=== PATIENT | female | born 1955 | race Caucasian/White ===

== ENCOUNTER 2025-04-06 14:12 | Emergency (ER) | payer MEDICARE, OTHER ==
[~2025-04-06] VITALS: Ht 172.7 cm; Wt 110.0 kg
--- NOTE | 2025-04-06 16:01 | ED.PDOC ---
Clarisse. trauma (HPI) HPI Comments A 69 YEAR OLD FEMALE PRESENTS TO THE ED WITH COMPLAINT OF NOSE PAIN, LEFT KNEE PAIN, AND LEFT SHOULDER PAIN STATUS POST FALL. PATIENT STATES SHE WAS WALKING AND ACCIDENTALLY TRIPPED OVER OCCURRED AND FELL FORWARD. PATIENT REPORTS SHE HIT HER NOSE ON THE GROUND AND NOW HAS A BRUISE ON HER NOSE. PATIENT STATES SHE IS ALSO EXPERIENCING LEFT SHOULDER PAIN AND LEFT KNEE PAIN DUE TO HITTING THESE AREAS ON THE GROUND WELL. PATIENT DENIES HEAD INJURY, NECK INJURY, LOC, FEVER, CHILLS, SHORTNESS OF BREATH, CHEST PAIN, ABDOMINAL PAIN, NAUSEA, VOMITING, HEADACHE, OR OTHER COMPLAINTS. NO OTHER SYMPTOMS OR MODIFYING FACTORS AT THIS TIME. PATIENT IS ALERT, ORIENTED X 4, AND HAS STEADY GAIT. Chief Complaint: Fall Injury Time Seen by MD: 14:34 Reviewed notes: Nurses Notes, Medications, Allergies Allergies: Coded Allergies: Penicillins (Verified Allergy, Unknown, 04/06/25) Home Meds Active Scripts Tramadol HCl (Tramadol HCl) 50 Mg Tab, 50 MG PO BID, #20 TAB Prov:ADA GUZMÁN 04/06/25 Cephalexin Monohydrate (Cephalexin) 500 Mg Cap, 1 CAP PO QID, #32 CAP Prov:ADA GUZMÁN 04/06/25 Information Source: Patient Mode of Arrival: Ambulatory Severity: Moderate Timing: Hours Duration: Since onset, Hours Prehospital treatment: None Location: (L) Knee, Nose, (L) Shoulder Location of laceration: None Mechanism: Fall Associated signs and symtoms: None Past Medical History PAST MEDICAL HISTORY: Arthritis Surgical History: Denies all surgeries [employer]K [employer]IP[employer] History: No Pertinent [employer]PER History Family History Family History: Reviewed,noncontributory to illness Social History Smoker: Non-Smoker Alcohol: Denies ETOH Use Drugs: Denies Drug Use Lives In: Home Constitutional: denies: chills, diaphoresis, fatigue, fever, malaise, sweats, weakness, others EENTM: reports: nose pain; denies: blurred vision, double vision, ear bleeding, ear discharge, ear drainage, ear pain, ear ringing, eye pain, eye redness, hearing loss, mouth pain, mouth swelling, nasal discharge, nose bleeding, nose congestion, photophobia, tearing, throat pain, throat swelling, voice changes, others Respiratory: denies: cough, hemoptysis, orthopnea, SOB at rest, shortness of breath, SOB with excertion, stridor, wheezing, others Cardiovascular: denies: chest pain, dizzy spells, diaphoresis, Dyspnea on exertion, edema, irregular heart beat, left arm pain, lightheadedness, palpitations, PND, syncope, others Gastrointestinal: denies: abdomen distended, abdominal pain, blood streaked bowels, constipated, diarrhea, dysphagia, difficulty swallowing, hematemesis, melena, nausea, poor appetite, poor fluid intake, rectal bleeding, rectal pain, vomiting, others Genitourinary: denies: abnormal vagina bleeding, burning, dyspareunia, dysuria, flank pain, frequency, hematuria, incontinence, pain, , vagina discharge, urgency, others Neurological: denies: dizziness, fainting, headache, left sided numbness, left sided weakness, numbness, paresthesia, pre-existing deficit, right sided numbness, right sided weakness, seizure, speech problems, tingling, tremors, weakness, others Musculoskeletal: reports: joint pain, others (LEFT SHOULDER PAIN, LEFT KNEE PAIN); denies: back pain, gout, joint swelling, muscle pain, muscle stiffness, neck pain Integumetry: reports: lesions, wounds; denies: bruises, change in color, change in hair/nails, dryness, laceration, lumps, rash, others Allergic/Immunocompromised: denies: Difficulty Healing, Frequent Infections, Hives, Itching, others Hematologic/Lymphatic: denies: anemia, blood clots, easy bleeding, easy bruising, swollen glands, others Endocrine: denies: excessive hunger, excessive sweating, excessive thirst, excessive urination, flushing, intolerance to cold, intolerance to heat, unexplained weight gain, unexplained weight loss, others Psychiatric: denies: anxiety, bipolar disorder, depression, hopeless, panic disorder, schizophrenia, sleepless, suicidal, others All Other Systems: Reviewed and Negative Physical Exam General Appearance: No Apparent Distress, Normal HEENT: Normal ENT Inspection, PERRL/EOMI, Pharynx Normal, TMs Normal, Other (BONY TENDERNESS AND SWELLING WITH ABRASION ON ANTERIOR NOSE, NO DEFORMITY AND NOSE BLEEDING. ) Neck: Full Range of Motion, Non-Tender, Normal, Normal Inspection Respiratory: Chest Non-Tender, Lungs Clear, No Accessory Muscle Use, No Respiratory Distress, Normal Breath Sounds Cardiovascular: No Edema, No JVD, No Murmur, No Gallop, Normal Peripheral Pulses, Regular Rate/Rhythm Breast Exam: Deferred Gastrointestinal: No Organomegaly, Non Tender, No Pulsatile Mass, Normal Bowel Sounds, Soft Genitalia: Deferred Pelvic: Deferred Rectal: Deferred Extremities: No calf tenderness, Normal capillary refill, Normal range of motion, No pedal edema, Swelling (TENDERNESS AND CONTUSION ON LEFT KNEE, NO BONY TENDERNESS AND DEFORMITY. ), Tender (AND MUSCLE STRAIN OF LEFT SHOULDER, NO BONY TENDERNESS AND DEFORMITY, DEDRA ROM. ) Musculoskeletal : Apperance: Normal Neurologic: Alert, therapeutic recreation assistant II-XII nml as Tested, No Motor Deficits, Normal Affect, Normal Mood, No Sensory Deficits Cerebellar Function: Normal Reflexes: Normal Skin: Bruises (LEFT KNEE ), Dry, Normal Color, Warm, Wounds (ABRASION WOUND ON ANTERIOR NOSE, NO BLEEDING AND FB. ) Peripheral Pulses: 2+ carotid (R), 2+ carotid (L) Lymphatic: No Adenopathy Was a procedure done? Was a procedure done?: No Differential Diagnosis Multiple Trauma: Fractures, Abrasions, Contusion, Hematoma, Other (SPRAIN, MUSCLE STRAIN) Neck Injury: N/A X-Ray, Labs, Meds, VS Vital Signs Date Time Temp Pulse Resp B/P (MAP) Pulse Ox O2 Delivery O2 Flow Rate FiO2 04/06/25 16:21 80 19 97 Room Air 04/06/25 16:21 97.8 80 19 151/76 (101) 97 97.8 04/06/25 14:17 97.8 80 19 151/76 97 97.8 ORDERING PHYSICIAN: ADA GUZMÁN PROCEDURE(s): LSHD2 - L SHOULDER 2+ VIEW XRAY REASON: FALL ORDER NUMBER(s): [id number], ACCESSION NUMBER(s): [id number] XY L SHOULDER 2+ VIEW XRAY Indication: 69 years old, Female; FALL. Comparison: None FINDINGS: Ill-defined sclerotic area in the left humeral head. Degenerative changes. IMPRESSION: Ill-defined sclerotic area in the left humeral head. This could be degenerative but underlying is not completely excluded. Consider CT if there is concern for underlying acute fracture. ATED BY: SILVESTRE RUIZ MD DICTATED DATE/TIME: 04/06/251656 SIGNED BY: SILVESTRE RUIZ MD SIGNED DATE/TIME: 04/06/251656 CC: ORDERING PHYSICIAN: ADA GUZMÁN PROCEDURE(s): LKNE3 - L KNEE 3V XRAY REASON: FALL ORDER NUMBER(s): [id number], ACCESSION NUMBER(s): [id number] XY L KNEE 3V XRAY COMPARISON: None INDICATION: FALL FINDINGS/IMPRESSION: No acute fracture or dislocation. 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 Trace joint effusion. ATED BY: SILVESTRE RUIZ MD DICTATED DATE/TIME: 04/06/251658 SIGNED BY: SILVESTRE RUIZ MD SIGNED DATE/TIME: 04/06/251658 CC: X-Ray, Labs, Meds, VS Comment EXTERNAL MEDICAL RECORDS REVIEWED: [NONE] INDEPENDENT HISTORIANS: [NONE] SOCIAL DETERMINANTS OF HEALTH: [NONE] LABS ORDERED: NONE REVIEWED AND INTERPRETED RESULTS: NONE IMAGING ORDERED: XR NASAL BONES: [INTERPRETED BY ME. NONDISPLACED NASAL BONE FRACTURE VISUALIZED. NO DISLOCATION SEEN. PENDING RADIOLOGY AREA.] XR SHOULDER LT: [INTERPRETED BY ME. NO ACUTE FINDINGS. NO FRACTURES OR DISLOCATION. PENDING RADIOLOGIST REPORT.] XR KNEE LT: [INTERPRETED BY ME. NO ACUTE FRACTURE OR DISLOCATION SEEN. DJD OF KNEE VISUALIZED. PENDING RADIOLOGY REVIEW.] TREATMENTS ORDERED: NORCO 5/325 MG PO PROCEDURES PERFORMED: NONE CRITICAL CARE TIME: NONE I HAVE DISCUSSED THE PATIENT WITH THE ATTENDING PHYSICIAN DR. AGUIRRE AND HE AGREES WITH THE PATIENT'S PLAN OF CARE AND DISPOSITION. BASED ON HISTORY OF PRESENT ILLNESS, AND PHYSICAL EXAM, PATIENT WILL BE DISCHARGED HOME. DISCUSSED PLAN FOR DISCHARGE HOME WITH RX [KEFLEX AND ULTRAM]. MEDICATION WARNINGS GIVEN. SHARED DECISION MAKING: DISCUSSED WITH PATIENT THAT THEIR WORKUP WAS NORMAL. PATIENT INSTRUCTED TO FOLLOW UP WITH PRIMARY CARE PROVIDER IN 1-2 DAYS FOR RE- EVALUATION OF SYMPTOMS. PATIENT VERBALIZES UNDERSTANDING TO RETURN TO ED FOR NEW OR WORSENING SYMPTOMS OR IF FOLLOW UP WITH PCP CANNOT BE OBTAINED. PATIENT FEELS COMFORTABLE GOING HOME AT THIS TIME. ALL QUESTIONS ADDRESSED AT TIME OF DISCHARGE. Images Reviewed?: Images reviewed and evaluated by me Time of 1ST Reevaluation: 17:10 Reevaluation 1ST: Improved Patient Education/Counseling: Diagnosis, Treatment, Need For Follow Up Family Education/Counseling: Diagnosis, Treatment, Need For Follow Up Medical Screening: No EMC Exist At This Time Departure 1 Departure Time of Disposition: 17:10 Impression: Primary Impression: Nasal bone fracture Qualified Codes: S02.2XXA - Fracture of nasal bones, initial encounter for closed fracture Additional Impressions: Contusion of left knee Qualified Codes: S80.02XA - Contusion of left knee, initial encounter Muscle strain of left shoulder Qualified Codes: S46.912A - Strain of unspecified muscle, fascia and tendon at shoulder and upper arm level, left arm, initial encounter Status post fall Disposition: 01 HOME / SELF CARE / HOMELESS Condition: Stable Additional Instructions: FOLLOW-UP WITH PCP IN 1 TO 2 DAYS. TAKE MEDICATIONS PRESCRIBED. RETURN TO ED FOR ANY NEW OR WORSENING SYMPTOMS. e-Prescriptions Tramadol HCl (Tramadol HCl) 50 Mg Tab 50 MG PO BID, #20 TAB Prov: ADA GUZMÁN 04/06/25 Cephalexin Monohydrate (Cephalexin) 500 Mg Cap 1 CAP PO QID, #32 CAP Prov: ADA GUZMÁN 04/06/25 Discharged With: Self, Spouse Critical Care Note Critical Care Time?: No Stability Stability form required: No I personally scribed for ADA GUZMÁN ([email or web address]) on 04/06/25 at 16:01. Betty ctronically submitted by Vijay Suarez (MARCO ANTONIO). I personally scribed for ADA GUZMÁN ([email or web address]) on 04/06/25 at 17:02. Betty ctronically submitted by Vijay Suarez ([email or web address]). I personally scribed for ADA GUZMÁN ([email or web address]) on 04/06/25 at 17:03. Betty ctronically submitted by iVjay Suarez ([email or web address]). I personally scribed for ADA GUZMÁN ([email or web address]) on 04/06/25 at 17:04. Betty ctronically submitted by Vijay Suarez (MARCO ANTONIO). ADA GUZMÁN Apr 06, 2025 16:01
[2025-04-06 16:21] VITALS: BP 151/76; PULSE 80; RESP 19; TEMP 97.8; O2SAT 97
--- NOTE | 2025-04-06 17:00 | DVH ---
XY L SHOULDER 2+ VIEW XRAY Indication: 69 years old, Female; FALL. Comparison: None FINDINGS: Ill-defined sclerotic area in the left humeral head. Degenerative changes. IMPRESSION: Ill-defined sclerotic area in the left humeral head. This could be degenerative but underlying is not completely excluded. Consider CT if there is concern for underlying acute fracture.
--- NOTE | 2025-04-06 17:02 | DVH ---
XY L KNEE 3V XRAY COMPARISON: None INDICATION: FALL FINDINGS/IMPRESSION: No acute fracture or dislocation. 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 Trace joint effusion.
--- NOTE | 2025-04-06 17:02 | DVH ---
XY NASAL BONES 3+VIEWS COMPARISON: None INDICATION: FALL FINDINGS/IMPRESSION: No acute displaced nasal bone fracture.
[2025-04-06] MEDS ORDERED: TRAM-626 PO (17:06)
[2025-04-06] MEDS ORDERED: CEPH500C PO (17:06)
[2025-04-06] MEDS: HYDROcodone-ACET 5/325MG TAB PO ONE (17:10)
== END 2025-04-06 17:14 | disposition home or self-care (01) ==
LOC: ER 14:12
DX: S02.2XXA Fracture of nasal bones, initial encounter for closed fracture (principal); S46.912A Strain of unspecified muscle, fascia and tendon at shoulder and upper arm level, left arm, initial encounter; S80.02XA Contusion of left knee, initial encounter; Z88.0 Allergy status to penicillin; W01.0XXA Fall on same level from slipping, tripping and stumbling without subsequent striking against object, initial encounter; Y93.01 Activity, walking, marching and hiking; Y92.89 Other specified places as the place of occurrence of the external cause; Y99.8 Other external cause status
CPT/HCPCS: 70160; 73030; 73562